=== PATIENT | female | born 1970 | race Caucasian/White ===

== ENCOUNTER 2023-11-30 11:07 | Emergency (ER) | payer MEDICARE, MEDICAID ==
[2023-11-30] MEDS: Bacitracin Oint 1 GM U/D Packet TOP ONE (11:45)
[2023-11-30] MEDS: Diphtheria,Pertussis(Acell),Tetanus Vaccine 0.5 ML Syringe IM ONE (11:50)
== END 2023-11-30 11:50 | disposition home or self-care (01) ==
LOC: LB.ED 11:07
DX: S81.811A Laceration without foreign body, right lower leg, initial encounter (principal); E11.9 Type 2 diabetes mellitus without complications; W19.XXXA Unspecified fall, initial encounter; Z23 Encounter for immunization; Z88.0 Allergy status to penicillin
CPT/HCPCS: 90471; 90715; 99282-25

== ENCOUNTER 2024-01-01 20:53 | Emergency (ER) | payer MEDICARE, MEDICAID ==
[2024-01-01] MEDS: Sodium Chloride 0.9% 1,000 ML IV SCH (21:00)
[2024-01-01 21:17] LABS: BASOPHILS PERCENT AUTO 1.7 % (0.0-0.5); EOSINOPHILS ABSOLUTE AUTO 0.55 K/uL (0.04-0.40); EOSINOPHILS PERCENT AUTO 9.5 % (1.0-5.0); HEMATOCRIT 34.6 % (37.0-47.0); HEMOGLOBIN 10.6 g/dL (11.5-16.5); LYMPHOCYTES ABSOLUTE AUTO 1.57 K/uL (1.50-4.00); MEAN CORPUSCULAR HGB CONC 30.6 g/dL (31.0-35.0); MEAN CORPUSCULAR VOLUME 95 fL (76-96); MEAN PLATELET VOLUME 9.6 fL (6.0-10.0); MONOCYTES ABSOLUTE AUTO 0.41 K/uL (0.20-0.80); NEUTROPHILS ABSOLUTE AUTO 3.19 K/uL (2.00-7.50); NEUTROPHILS PERCENT AUTO 54.8 % (45.0-70.0); PLATELET COUNT,PLT 369 K/uL (150-500); RED BLOOD CELL COUNT 3.66 M/uL (3.80-5.80); RED CELL DISTRIBUTION WIDTH 13.8 % (11.0-16.0); WHITE BLOOD CELL COUNT,WBC 5.8 K/uL (4.0-11.0)
[2024-01-01 21:21] LABS: APPEARANCE,URINE CLEAR (CLEAR); BILIRUBIN,URINE SMALL (NEGATIVE); COLOR,URINE YELLOW; GLUCOSE,URINE NEGATIVE (NEGATIVE); KETONES,URINE NEGATIVE (NEGATIVE); LEUKOCYTE ESTERASE,URINE NEGATIVE (NEGATIVE); NITRITE,URINE NEGATIVE (NEGATIVE); OCCULT BLOOD,URINE NEGATIVE (NEGATIVE); PH,URINE 5.5 (5.0-8.0); PROTEIN,URINE TRACE mg/dL (NEGATIVE)
[2024-01-01] MEDS: Naloxone 2 MG/2 ML Syringe IVPUSH PRN ×2 (21:30)
[2024-01-01 21:32] LABS: AMPHETAMINES SCREEN, URINE NEGATIVE (NEGATIVE); BARBITURATE SCREEN,URINE NEGATIVE (NEGATIVE); BENZODIAZEPINES SCREEN,URINE NEGATIVE (NEGATIVE); EPITHELIAL CELLS,URINE FEW /HPF; METHADONE SCREEN, URINE NEGATIVE (NEGATIVE); METHAMPHETAMINES SCREEN, URINE NEGATIVE (NEGATIVE); OXYCODONE SCREEN,URINE NEGATIVE (NEGATIVE); RBC,URINE 0-5 /HPF; THC SCREEN,URINE 50 NG/ML NEGATIVE (NEGATIVE); WBC,URINE NOT SEEN /HPF
[2024-01-01 21:33] LABS: BASE EXCESS VENOUS 0.3 mm/L (-2-3); BICARBONATE,VENOUS 25.2 mmol/L (23.0-28.0); PCO2 VENOUS 41.4 mm/Hg (41-51); PH,VENOUS 7.39 (7.31-7.41)
[2024-01-01 21:40] LABS: A/G RATIO 1.1 (0.8-2.0); ALANINE AMINOTRANSFERASE,ALT 59 U/L (12-78); ALKALINE PHOSPHATASE 117 U/L (46-116); ASPARTATE AMNIOTRANSFERASE,AST 43 U/L (15-37); BILIRUBIN TOTAL 0.1 mg/dL (0.0-1.0); BLOOD UREA NITROGEN,BUN 26 mg/dL (8-26); BUN/CREATININE RATIO 30.2 (6-25); CALCIUM 7.9 mg/dL (8.5-10.1); CARBON DIOXIDE,CO2 30.4 mmol/L (21.0-32.0); CHLORIDE,CL 112 mmol/L (98-107); CREATININE 0.86 mg/dL (0.55-1.02); ESTIMATED GFR 80 mL/min (>60); GLUCOSE RANDOM 130 mg/dL (74-100); POTASSIUM,K 3.4 mmol/L (3.5-5.1); PROTEIN TOTAL,TP 5.8 g/dL (6.4-8.2); SODIUM,NA 147 mmol/L (136-145); TSH ULTRASENSITIVE 0.861 uIU/mL (0.358-3.740)
[2024-01-02] MEDS ORDERED: Sodium Chloride 0.9% 10 ML Syringe FLUSH PRN (05:26)
== END 2024-01-02 09:21 | disposition home or self-care (01) ==
LOC: LB.ED 20:53
DX: R46.4 Slowness and poor responsiveness (principal); Z79.899 Other long term (current) drug therapy; Z88.8 Allergy status to other drugs, medicaments and biological substances; Z88.5 Allergy status to narcotic agent; Z88.6 Allergy status to analgesic agent; Z88.0 Allergy status to penicillin
CPT/HCPCS: 36415; 51702; 70450; 80053; 80307; 81001; 82140; 82803; 82947; 83735; 84443; 85025; 93005; 96361; 96374; 96376; 99285; A0425; A0429; J2310; J7030; 93010; 99284

== ENCOUNTER 2024-04-24 10:10 | Emergency (ER) | payer MEDICARE, MEDICAID ==
[2024-04-24] MEDS: Lidocaine 1% with EPINEPHrine 1:100,000 20 ML MDV INJECT ONE (10:40)
[2024-04-24] MEDS: Bacitracin Oint 1 GM U/D Packet TOP ONE (10:45)
[2024-04-25] MEDS: Lidocaine 1% with EPINEPHrine 1:100,000 50 ML MDV INFILT ONE (08:22)
== END 2024-04-24 10:50 | disposition home or self-care (01) ==
LOC: LB.ED 10:10
DX: S01.01XA Laceration without foreign body of scalp, initial encounter (principal); Z90.49 Acquired absence of other specified parts of digestive tract; Z79.899 Other long term (current) drug therapy; Z88.8 Allergy status to other drugs, medicaments and biological substances; Z88.6 Allergy status to analgesic agent; Z88.5 Allergy status to narcotic agent; Z88.9 Allergy status to unspecified drugs, medicaments and biological substances; Z88.0 Allergy status to penicillin; W01.0XXA Fall on same level from slipping, tripping and stumbling without subsequent striking against object, initial encounter
CPT/HCPCS: 12011; 99283

== ENCOUNTER 2024-10-15 16:46 | Emergency (ER) | payer MEDICARE, MEDICAID ==
[2024-10-15] MEDS: cefTRIAXone 1 GM Vial IM ONE (17:25)
[2024-10-15] MEDS: Enoxaparin 80 MG/0.8 ML Syringe SUBCUT ONE (17:53)
[2024-10-15] MEDS ORDERED: Cephalexin 500 MG Cap ONE (18:00)
== END 2024-10-15 18:10 | disposition home or self-care (01) ==
LOC: LB.ED 16:46
DX: L03.116 Cellulitis of left lower limb (principal); I87.2 Venous insufficiency (chronic) (peripheral); I10 Essential (primary) hypertension; J44.9 Chronic obstructive pulmonary disease, unspecified; Z88.6 Allergy status to analgesic agent; Z88.5 Allergy status to narcotic agent; Z88.8 Allergy status to other drugs, medicaments and biological substances; Z88.0 Allergy status to penicillin; Z79.899 Other long term (current) drug therapy
CPT/HCPCS: 96372; 99283; 99284; A0425; A0429; A9270-GY; J0696; J1650

== ENCOUNTER 2025-03-11 11:26 | Emergency (ER) | payer MEDICARE, MEDICAID ==
[2025-03-11 12:19] LABS: BASOPHILS ABSOLUTE AUTO 0.02 K/uL (0.02-0.10); BASOPHILS PERCENT AUTO 0.5 % (0.0-0.5); EOSINOPHILS ABSOLUTE AUTO 0.16 K/uL (0.04-0.40); EOSINOPHILS PERCENT AUTO 4.1 % (1.0-5.0); LYMPHOCYTES ABSOLUTE AUTO 0.82 K/uL (1.50-4.00); LYMPHOCYTES PERCENT AUTO 21.1 % (20.0-40.0); MEAN PLATELET VOLUME 9.7 fL (6.0-10.0); MONOCYTES ABSOLUTE AUTO 0.28 K/uL (0.20-0.80); MONOCYTES PERCENT AUTO 7.2 % (3.0-10.0); NEUTROPHILS ABSOLUTE AUTO 2.61 K/uL (2.00-7.50); NEUTROPHILS PERCENT AUTO 67.1 % (45.0-70.0); PLATELET COUNT,PLT 287 K/uL (150-500); RED BLOOD CELL COUNT 3.32 M/uL (3.80-5.80); RED CELL DISTRIBUTION WIDTH 18.5 % (11.0-16.0); WHITE BLOOD CELL COUNT,WBC 3.9 K/uL (4.0-11.0)
[2025-03-11 12:24] LABS: APPEARANCE,URINE CLEAR (CLEAR); GLUCOSE,URINE NEGATIVE (NEGATIVE); OCCULT BLOOD,URINE NEGATIVE (NEGATIVE)
[2025-03-11 12:46] LABS: A/G RATIO 0.9 (0.8-2.0); ALANINE AMINOTRANSFERASE,ALT 20.0 U/L (12-78); ASPARTATE AMNIOTRANSFERASE,AST 13.0 U/L (15-37); BILIRUBIN TOTAL 0.1 mg/dL (0.0-1.0); BLOOD UREA NITROGEN,BUN 22.0 mg/dL (8-26); CARBON DIOXIDE,CO2 30.3 mmol/L (21.0-32.0); CHLORIDE,CL 106.0 mmol/L (98-107); CREATININE 0.77 mg/dL (0.55-1.02); EST CRCL DRUG DOSING (CG) 94.14 mL/min; ESTIMATED GFR 90.0 mL/min (>60); GLUCOSE RANDOM 70.0 mg/dL (74-100); POTASSIUM,K 4.3 mmol/L (3.5-5.1); PROTEIN TOTAL,TP 6.6 g/dL (6.4-8.2); SODIUM,NA 143.0 mmol/L (136-145)
== END 2025-03-11 19:10 | disposition home or self-care (01) ==
LOC: LB.ED 11:26
DX: D64.9 Anemia, unspecified (principal); G89.29 Other chronic pain; F11.20 Opioid dependence, uncomplicated; I10 Essential (primary) hypertension; J44.9 Chronic obstructive pulmonary disease, unspecified; Z90.49 Acquired absence of other specified parts of digestive tract; Z90.710 Acquired absence of both cervix and uterus
CPT/HCPCS: 36415; 36430; 71045; 80053; 81003; 82607; 84443; 85025; 86850; 86900; 86901; 86920; 86922; 99284; P9016

== ENCOUNTER 2025-04-22 10:37 | Emergency (ER) | payer MEDICARE, MEDICAID ==
[2025-04-22] MEDS: Ketorolac 30 MG/ML SDV IM ONE (11:18)
[2025-04-22 12:18] VITALS: BP 107/68; PULSE 76
== END 2025-04-22 12:02 | disposition home or self-care (01) ==
LOC: LB.ED 10:37
DX: S93.402A Sprain of unspecified ligament of left ankle, initial encounter (principal); S39.012A Strain of muscle, fascia and tendon of lower back, initial encounter; J44.9 Chronic obstructive pulmonary disease, unspecified; E11.9 Type 2 diabetes mellitus without complications; Z88.6 Allergy status to analgesic agent; Z88.5 Allergy status to narcotic agent; Z88.8 Allergy status to other drugs, medicaments and biological substances; Z79.899 Other long term (current) drug therapy; Z88.2 Allergy status to sulfonamides; Z88.0 Allergy status to penicillin; Z90.49 Acquired absence of other specified parts of digestive tract; X50.1XXA Overexertion from prolonged static or awkward postures, initial encounter; Y93.89 Activity, other specified
CPT/HCPCS: 73610-LT; 96372; 99283; J1885

== ENCOUNTER 2025-04-30 02:27 | Emergency (ER) | payer MEDICARE, MEDICAID ==
[2025-04-30 03:21] LABS: BASOPHILS ABSOLUTE AUTO 0.03 K/uL (0.02-0.10); BASOPHILS PERCENT AUTO 0.5 % (0.0-0.5); EOSINOPHILS ABSOLUTE AUTO 0.14 K/uL (0.04-0.40); EOSINOPHILS PERCENT AUTO 2.5 % (1.0-5.0); LYMPHOCYTES ABSOLUTE AUTO 1.31 K/uL (1.50-4.00); LYMPHOCYTES PERCENT AUTO 23.3 % (20.0-40.0); MEAN PLATELET VOLUME 9.1 fL (6.0-10.0); MONOCYTES ABSOLUTE AUTO 0.39 K/uL (0.20-0.80); MONOCYTES PERCENT AUTO 6.9 % (3.0-10.0); NEUTROPHILS ABSOLUTE AUTO 3.75 K/uL (2.00-7.50); NEUTROPHILS PERCENT AUTO 66.8 % (45.0-70.0); PLATELET COUNT,PLT 331 K/uL (150-500); RED BLOOD CELL COUNT 3.51 M/uL (3.80-5.80); RED CELL DISTRIBUTION WIDTH 18.7 % (11.0-16.0); WHITE BLOOD CELL COUNT,WBC 5.6 K/uL (4.0-11.0)
[2025-04-30 03:32] LABS: A/G RATIO 1.1 (0.8-2.0); ALANINE AMINOTRANSFERASE,ALT 140.0 U/L (12-78); ASPARTATE AMNIOTRANSFERASE,AST 169.0 U/L (15-37); BILIRUBIN TOTAL 0.2 mg/dL (0.0-1.0); BLOOD UREA NITROGEN,BUN 20.0 mg/dL (8-26); CARBON DIOXIDE,CO2 29.4 mmol/L (21.0-32.0); CHLORIDE,CL 99.0 mmol/L (98-107); CREATININE 0.94 mg/dL (0.55-1.02); EST CRCL DRUG DOSING (CG) 69.84 mL/min; ESTIMATED GFR 71.0 mL/min (>60); GLUCOSE RANDOM 90.0 mg/dL (74-100); POTASSIUM,K 4.2 mmol/L (3.5-5.1); PROTEIN TOTAL,TP 6.3 g/dL (6.4-8.2); SODIUM,NA 135.0 mmol/L (136-145)
[2025-04-30 03:44] LABS: TROPONIN I HIGH SENSITIVITY < 4.0 pg/ml (<=60.4)
[2025-04-30 03:49] LABS: INR 1.0 (1.0-3.5); PTT,PARTIAL THROMBOPLSTIN TIME 22.7 SECONDS (24.4-33.2)
[2025-04-30 04:33] LABS: APPEARANCE,URINE CLEAR (CLEAR); GLUCOSE,URINE NEGATIVE (NEGATIVE); OCCULT BLOOD,URINE NEGATIVE (NEGATIVE)
[2025-04-30] MEDS ORDERED: Sodium Chloride 0.9% 10 ML Syringe FLUSH PRN (04:43)
[2025-04-30 04:47] LABS: SQUAMOUS EPITHELIAL CELLS,UR OCCASIONAL /HPF; WBC CLUMPS,URINE FEW /HPF
[2025-04-30 04:52] LABS: AMPHETAMINES SCREEN, URINE NEGATIVE (NEGATIVE); METHADONE SCREEN, URINE NEGATIVE (NEGATIVE); METHAMPHETAMINES SCREEN, URINE NEGATIVE (NEGATIVE); OXYCODONE SCREEN,URINE POSITIVE (NEGATIVE); THC SCREEN,URINE 50 NG/ML NEGATIVE (NEGATIVE)
== END 2025-04-30 06:50 | disposition home or self-care (01) ==
LOC: LB.ED 02:27
DX: R40.4 Transient alteration of awareness (principal); J44.9 Chronic obstructive pulmonary disease, unspecified; Z90.710 Acquired absence of both cervix and uterus; Z88.5 Allergy status to narcotic agent; Z88.8 Allergy status to other drugs, medicaments and biological substances
CPT/HCPCS: 36415; 80053; 80307; 81001; 82140; 83735; 84484; 85025; 85610; 85730; 87086; 93005; 93010; 96360; 99284; 99285-25; A0425; A0428; J7030